=== PATIENT | male | born 1970 | race Caucasian/White ===

== ENCOUNTER 2023-12-15 12:57 | Outpatient (CLI) | payer MEDICARE, MEDICAID, SELFPAY | END 2023-12-15 12:58 | disposition home or self-care (01) | PROVIDERS: PCP Family Medicine; Visit Provider Family Medicine | DX: E66.01 Morbid (severe) obesity due to excess calories (principal); E78.2 Mixed hyperlipidemia; E11.9 Type 2 diabetes mellitus without complications; I10 Essential (primary) hypertension; Z12.5 Encounter for screening for malignant neoplasm of prostate; Z79.4 Long term (current) use of insulin | CPT/HCPCS: 80048; 80061; 84460; G0103 ==

== ENCOUNTER 2024-10-11 11:19 | Outpatient (CLI) | payer MEDICARE, MEDICAID, SELFPAY | END 2024-10-11 11:20 | disposition home or self-care (01) | LOC: FBOREF 11:22 | PROVIDERS: PCP Family Medicine; Visit Provider Family Medicine | DX: E78.2 Mixed hyperlipidemia (principal); E29.1 Testicular hypofunction | CPT/HCPCS: 80061; 84403 ==

== ENCOUNTER 2025-04-09 14:29 | Outpatient (CLI) | payer MEDICARE, MEDICAID, SELFPAY ==
[2025-04-09 16:09] LABS: PCR FLU A Negative PCR FLU A (Negative); PCR FLU B Negative PCR FLU B (Negative); PCR RSV Negative PCR RSV (Negative); SARS PCR* Negative SARS-CoV-2 (Negative)
== END 2025-04-09 14:30 | disposition home or self-care (01) ==
PROVIDERS: PCP Family Medicine; Visit Provider Family Medicine
DX: R06.02 Shortness of breath (principal); I10 Essential (primary) hypertension; Z12.5 Encounter for screening for malignant neoplasm of prostate
CPT/HCPCS: 80048; 85025; 87631; G0103